=== PATIENT | female | born 1970 | race Caucasian/White ===

== ENCOUNTER 2020-04-04 15:02 | Outpatient (CLI) | payer OTHER | END 2020-04-04 23:59 | disposition home or self-care (01) | LOC: CFH 15:02 | PROVIDERS: ATTEND Obstetrics & Gynecology Gynecology | DX: Z02.9 Encounter for administrative examinations, unspecified (principal) ==

== ENCOUNTER → 2020-08-06 | Outpatient (CLI) | payer OTHER | END | disposition home or self-care (01) | LOC: CFH 09:00 | PROVIDERS: ATTEND Family Medicine | DX: N83.292 Other ovarian cyst, left side (principal); J84.10 Pulmonary fibrosis, unspecified; R30.9 Painful micturition, unspecified; M54.5 Low back pain | CPT/HCPCS: 74176 ==